=== PATIENT | female | born 1985 | race Caucasian/White ===

== ENCOUNTER 2017-01-25 07:15 | Emergency (ER) | payer OTHER ==
[~2017-01-25] VITALS: Ht 165.1 cm; Wt 101.1 kg
[~2017-01-25 07:15] MED LIST: ALEVE220 MG PO; ALLEGRA-D 241 TABLET PO; CITRATE OF MAG296 ML PO; CLARITIN10 MG PO; CYTOTEC200 MCG PO; FLONASE16 G1 BOTH NARES; FLOVENT 11120 INHALA IH; LOESTRIN 241 TABLET PO; NEURONTIN100 MG PO; PREVIFEM1 EACH PO; VENTOLIN HFA18 GM IH; ZANTAC150 MG PO
[2017-01-25 07:21] VITALS: BP 117/74
== END 2017-01-25 09:00 | disposition home or self-care (01) ==
LOC: EME 07:15
DX: J06.9 Acute upper respiratory infection, unspecified (principal); J45.909 Unspecified asthma, uncomplicated
CPT/HCPCS: 87651 90; 94640; 99281; 99284